=== PATIENT | male | born 1975 | race Caucasian/White ===

== ENCOUNTER 2023-09-07 17:30 | Inpatient (IN) | payer OTHER ==
[2023-09-07] MEDS ORDERED: ASPIRIN 81 MG PO STA (17:50)
[2023-09-07] MEDS ORDERED: NITROGLYCERIN OINT 1 INCH/GM PACKET TOPICAL STA (17:50)
--- NOTE | 2023-09-07 18:09 | ED ---
General Adult HPI - General Chief complaint: Shortness of Breath Stated complaint: low oxygen Time Seen by Provider: 09/07/23 17:37 Source: EMS, RN notes reviewed, old records reviewed Mode of arrival: EMS - History of Present Illness Initial comments: This is a 48-year-old male patient admits that he is a frequent crack cocaine user but he also used heroin today patient went to [facility] and he complained about being short of breath and they noticed his pulse ox was in the 80s so they decided to send him in. Patient states he smokes quite heavily and his common was smoke a minute soon as I can get him. Patient denies chest pain or palpitations. Patient denies bowel pain patient denies nausea vomiting diarrhea. Patient denies lightheadedness or dizziness. Patient states he's been coughing quite a bit lately - Related Data Home Medications Medication Instructions Recorded Confirmed Albuterol Inhaler [Ventolin Hfa 1 - 2 puff INHALATION RT-Q6H PRN 09/07/23 09/07/23 Inhaler] Buprenorphine/Naloxone 8Mg/2Mg 1 film SL BID 09/07/23 09/07/23 [Suboxone 8-2Mg Film] Mirtazapine 7.5 mg PO HS 09/07/23 09/07/23 hydrOXYzine pamoate 50 mg PO Q6H PRN 09/07/23 09/07/23 Allergies Allergy/AdvReac Type Severity Reaction Status Date / Time No Known Allergies Allergy Verified 09/07/23 18:58 Review of Systems ROS Statement: Those systems with pertinent positive or pertinent negative responses have been documented in the HPI. ROS Other: All systems not noted in ROS Statement are negative. Past Medical History Additional Past Surgical History / Comment(s): meniscous repair surgery Smoking Status: Current every day smoker Past Alcohol Use History: Rare Past Drug Use History: Cocaine, Heroin, Opiates General Exam - General Exam Comments Initial Comments: GENERAL: Patient is well-developed and well-nourished. Patient is nontoxic and well- hydrated and is in mild distress. Pulse ox was 86% on room air, ENT: Neck is soft and supple. No significant lymphadenopathy is noted. Oropharynx is clear. Moist mucous membranes. Neck has full range of motion without eliciting any pain. EYES: The sclera were anicteric and conjunctiva were pink and moist. Extraocular movements were intact and pupils were equal round and reactive to light. Eyelids were unremarkable. PULMONARY: Unlabored respirations. Good breath sounds bilaterally. No audible rales rhonchi or wheezing was noted. CARDIOVASCULAR: There is a regular rate and rhythm without any murmurs gallops or rubs. ABDOMEN: Soft and nontender with normal bowel sounds. SKIN: Skin is clear with no lesions or rashes and otherwise unremarkable. NEUROLOGIC: Patient is alert and oriented x3. Cranial nerves II through XII are grossly intact. Motor and sensory are also intact. Normal speech, volume and content. Symmetrical smile. MUSCULOSKELETAL: Normal extremities with adequate strength and full range of motion. LYMPHATICS: No significant lymphadenopathy is noted PSYCHIATRIC: Normal psychiatric evaluation. Course Vital Signs 09/07/23 09/07/23 09/07/23 17:41 17:47 19:15 Temperature 99.3 F Pulse Rate 83 79 Respiratory 20 20 Rate Blood Pressure 110/58 104/63 O2 Sat by Pulse 88 L 95 97 Oximetry 09/07/23 19:48 Temperature Pulse Rate Respiratory 20 Rate Blood Pressure O2 Sat by Pulse Oximetry Medical Decision Making - Medical Decision Making EKG is interpreted by myself. EKG shows sinus rhythm at 72 bpm ID interval 246 QRS is under QT intervals 382 QTC is 407. EKG shows no ST segment elevation or depression Was pt. sent in by a medical professional or institution ([facility], [facility]IER, urgent care, hospital, or residential...) When possible be specific @ -[facility] patient to the emergency department Did you speak to anyone other than the patient for history (EMS, parent, family, police, friend...)? What history was obtained from this source @ -No Did you review nursing and triage notes (agree or disagree)? Why? @ -I reviewed and agree with nursing and triage notes Were old charts reviewed (outside hosp., previous admission, EMS record, old EKG, old radiological studies, urgent care reports/EKG's, residential records)? Report findings @ -No old charts were reviewed Differential Diagnosis (chest pain, altered mental status, abdominal pain women, abdominal pain men, vaginal bleeding, weakness, fever, dyspnea, syncope, headache, dizziness, GI bleed, back pain, seizure, CVA, palpatations, mental health, musculoskeletal)? @ -Differential Dyspnea: Coronary syndrome, arrhythmia, tamponade, asthma, COPD, pulmonary embolism, pneumonia, pneumothorax, pulmonary effusion, anaphylaxis, diabetic ketoacidosis, flailed chest, pulmonary contusion, diaphragmatic rupture, anemia, neuromuscular, this is not meant to be an all-inclusive list. Differential Chest Pain: Stable Angina, Unstable Angina, STEMI, NSTEMI Aortic Dissection, Pneumothorax, Musculoskeletal, Esophageal Spasm GERD, Cholecystitis, Pancreatitis, Zoster, this is not meant to be an all-inclusive list. EKG interpreted by me (3pts min.). @ -As above X-rays interpreted by me (1pt min.). @ -Shows bilateral infiltrates CT interpreted by me (1pt min.). @ -None done U/S interpreted by me (1pt. min.). @ -None done What testing was considered but not performed or refused? (CT, X-rays, U/S, la bs)? Why? @ -None What meds were considered but not given or refused? Why? @ -None Did you discuss the management of the patient with other professionals (professionals i.e. , PA, CHECK OUT CASHIER, lab, RT, psych nurse, professor of social work, principal developer, teacher, tax revenue officer, spring encaser)? Give summary @ -I spoke with the [facility] hospitalist and they agreed to admit the patient admitted the patient wrote admitting orders Was smoking cessation discussed for >3mins.? @ -No Was critical care preformed (if so, how long)? @ -No Were there social determinants of health that impacted care today? How? (Homelessness, low income, unemployed, alcoholism, drug addiction, transportation, low edu. Level, literacy, decrease access to med. care, intermediate, rehab)? @ -No Was there de-escalation of care discussed even if they declined (Discuss DNR or withdrawal of care, Hospice)? DNR status @ -No What co-morbidities impacted this encounter? (DM, HTN, Smoking, COPD, CAD, Cancer, CVA, ARF, Chemo, Hep., AIDS, mental health diagnosis, sleep apnea, morbid obesity)? @ -None Was patient admitted / discharged? Hospital course, mention meds given and route, prescriptions, significant lab abnormalities, going to OR and other pertinent info. @ -The patient on antibiotics for the pneumonia. [facility] the patient wrote admitting orders Undiagnosed new problem with uncertain prognosis? @ -No Drug Therapy requiring intensive monitoring for toxicity (Heparin, Nitro, Ins ulin, Cardizem)? @ -No Were any procedures done? @ -No Diagnosis/symptom? @ -Pneumonia Acute, or Chronic, or Acute on Chronic? @ -Acute Uncomplicated (without systemic symptoms) or Complicated (systemic symptoms)? @ -Complicated Side effects of treatment? @ -No Exacerbation, Progression, or Severe Exacerbation? @ -No Poses a threat to life or bodily function? How? (Chest pain, [place], [place], pneumonia, PE, COPD, DKA, ARF, appy, cholecystitis, CVA, Diverticulitis, Homicidal, Suicidal, threat to staff... and all critical care pts) @ -Yes This can lead to sepsis and end organ dysfunction Diagnosis/symptom? @ -Chest pain Acute, or Chronic, or Acute on Chronic? @ -Acute Uncomplicated (without systemic symptoms) or Complicated (systemic symptoms)? @ -Complicated Side effects of treatment? @ -none Exacerbation, Progression, or Severe Exacerbation] @ -no Poses a threat to life or bodily function? @ -no - Lab Data Result diagrams: 09/07/23 19:16 09/07/23 19:16 Lab Results 09/07/23 09/07/23 09/07/23 Range/Units 19:16 19:16 19:16 WBC 14.6 H (3.8-10.6) k/uL RBC 4.18 L (4.30-5.90) m/uL Hgb 12.5 L (13.0-17.5) gm/dL Hct 36.7 L (39.0-53.0) % MCV 87.8 (80.0-100.0) fL MCH 30.0 (25.0-35.0) pg MCHC 34.1 (31.0-37.0) g/dL RDW 13.2 (11.5-15.5) % Plt Count 302 (150-450) k/uL MPV 7.1 Neutrophils % 77 % Lymphocytes % 16 % Monocytes % 5 % Eosinophils % 2 % Basophils % 0 % Neutrophils # 11.2 H (1.3-7.7) k/uL Lymphocytes # 2.3 (1.0-4.8) k/uL Monocytes # 0.7 (0-1.0) k/uL Eosinophils # 0.2 (0-0.7) k/uL Basophils # 0.1 (0-0.2) k/uL PT 10.9 (10.0-12.5) sec INR 1.0 (<1.2) APTT 25.3 (22.0-30.0) sec D-Dimer 0.57 (<0.60) mg/L FEU Sodium 137 (137-145) mmol/L Potassium 3.8 (3.5-5.1) mmol/L Chloride 102 (98-107) mmol/L Carbon Dioxide 26 (22-30) mmol/L Anion Gap 9 mmol/L BUN 18 (9-20) mg/dL Creatinine 0.72 (0.66-1.25) mg/dL Est GFR (CKD-EPI)AfAm >90 (>60 ml/min/1.73 sqM) Est GFR (CKD-EPI)NonAf >90 (>60 ml/min/1.73 sqM) Glucose 110 H (74-99) mg/dL Calcium 9.1 (8.4-10.2) mg/dL Magnesium 1.9 (1.6-2.3) mg/dL Total Bilirubin 0.9 (0.2-1.3) mg/dL AST 43 (17-59) U/L ALT 20 (4-49) U/L Alkaline Phosphatase 121 (38-126) U/L Troponin I (0.000-0.034) ng/mL NT-Pro-B Natriuret Pep 1540 pg/mL Total Protein 6.8 (6.3-8.2) g/dL Albumin 3.8 (3.5-5.0) g/dL 09/07/23 Range/Units 19:16 WBC (3.8-10.6) k/uL RBC (4.30-5.90) m/uL Hgb (13.0-17.5) gm/dL Hct (39.0-53.0) % MCV (80.0-100.0) fL MCH (25.0-35.0) pg MCHC (31.0-37.0) g/dL RDW (11.5-15.5) % Plt Count (150-450) k/uL MPV Neutrophils % % Lymphocytes % % Monocytes % % Eosinophils % % Basophils % % Neutrophils # (1.3-7.7) k/uL Lymphocytes # (1.0-4.8) k/uL Monocytes # (0-1.0) k/uL Eosinophils # (0-0.7) k/uL Basophils # (0-0.2) k/uL PT (10.0-12.5) sec INR (<1.2) APTT (22.0-30.0) sec D-Dimer (<0.60) mg/L FEU Sodium (137-145) mmol/L Potassium (3.5-5.1) mmol/L Chloride (98-107) mmol/L Carbon Dioxide (22-30) mmol/L Anion Gap mmol/L BUN (9-20) mg/dL Creatinine (0.66-1.25) mg/dL Est GFR (CKD-EPI)AfAm (>60 ml/min/1.73 sqM) Est GFR (CKD-EPI)NonAf (>60 ml/min/1.73 sqM) Glucose (74-99) mg/dL Calcium (8.4-10.2) mg/dL Magnesium (1.6-2.3) mg/dL Total Bilirubin (0.2-1.3) mg/dL AST (17-59) U/L ALT (4-49) U/L Alkaline Phosphatase (38-126) U/L Troponin I 0.014 (0.000-0.034) ng/mL NT-Pro-B Natriuret Pep pg/mL Total Protein (6.3-8.2) g/dL Albumin (3.5-5.0) g/dL Disposition Clinical Impression: Pneumonia, Chest pain Disposition: ADMITTED IP TO THIS HOSP Referrals: None,Stated [Primary Care Provider] - 1-2 days Time of Disposition: 20:40
--- NOTE | 2023-09-07 18:32 | XR ---
EXAMINATION TYPE: XR chest 2V DATE OF EXAM: 09/07/2023 COMPARISON: None INDICATION: Chest pain TECHNIQUE: Frontal and lateral views of the chest are obtained. FINDINGS: The heart size is normal. The pulmonary vasculature is prominent. There are patchy infiltrates bilaterally. Consider atypical pneumonia within the differential. Follow -up is recommended.. IMPRESSION: 1. Patchy nonspecific infiltrates. Consider atypical pneumonia. Follow-up is recommended.
[2023-09-07] MEDS ORDERED: LORazepam 2 MG/ML INJ IV STA (19:08)
[2023-09-07 19:23] LABS: Basophils # (A) 0.1 k/uL (0-0.2); Basophils % (A) 0 %; Eosinophils # (A) 0.2 k/uL (0-0.7); Eosinophils % (A) 2 %; HCT 36.7 % (39.0-53.0); HGB 12.5 gm/dL (13.0-17.5); Lymphocytes # (A) 2.3 k/uL (1.0-4.8); Lymphocytes % (A) 16 %; MCHC 34.1 g/dL (31.0-37.0); MCV 87.8 fL (80.0-100.0); Mean Platelet Volume 7.1; Monocytes # (A) 0.7 k/uL (0-1.0); Monocytes % (A) 5 %; Neutrophils # (A) 11.2 k/uL (1.3-7.7); Neutrophils % (A) 77 %; Platelet Count 302 k/uL (150-450); RBC 4.18 m/uL (4.30-5.90); RDW 13.2 % (11.5-15.5); WBC 14.6 k/uL (3.8-10.6)
[2023-09-07] MEDS ORDERED: cefTRIAXone IN SWFI 1,000 MG/10 ML SYRINGE IVP STA (19:29)
[2023-09-07 19:45] LABS: Partial Thromboplastin Time 25.3 sec (22.0-30.0); Prothrombin Time 10.9 sec (10.0-12.5)
[2023-09-07 19:59] LABS: ALT 20 U/L (4-49); AST 43 U/L (17-59); African American GFR (CKD) >90 (>60 ml/min/1.73 sqM); Albumin 3.8 g/dL (3.5-5.0); Alkaline Phosphatase 121 U/L (38-126); Anion Gap 9 mmol/L; Blood Urea Nitrogen 18 mg/dL (9-20); Calcium 9.1 mg/dL (8.4-10.2); Carbon Dioxide 26 mmol/L (22-30); Chloride 102 mmol/L (98-107); Glucose 110 mg/dL (74-99); Magnesium 1.9 mg/dL (1.6-2.3); Non-African American GFR(CKD) >90 (>60 ml/min/1.73 sqM); Potassium 3.8 mmol/L (3.5-5.1); Sodium 137 mmol/L (137-145); Total Bilirubin 0.9 mg/dL (0.2-1.3); Total Protein 6.8 g/dL (6.3-8.2)
[2023-09-07 20:08] LABS: NT-Pro-B-Type Natriuretic Pept 1540 pg/mL
[2023-09-07] MEDS ORDERED: AZITHROMYCIN 500 MG in SODIUM CHLORIDE 0.9% 250 ML IVPB STA (20:41)
[2023-09-07] MEDS ORDERED: PNEUMONIA PROTOCOL UTILIZED 1 EACH MISC PO PRN (20:41)
--- NOTE | 2023-09-08 07:37 | XR ---
EXAMINATION TYPE: XR chest 2V DATE OF EXAM: 09/08/2023 COMPARISON: 09/07/2023 HISTORY: Pneumonia TECHNIQUE: Frontal and lateral views of the chest are obtained. FINDINGS: Patchy airspace infiltrates persist throughout both lung anderson essentially unchanged from prior stud y compatible with pneumonia. Continued follow-up is advised No evidence for pneumothorax. No pleural effusion. The cardiac silhouette size is within normal limits. The osseous structures are grossly intact. IMPRESSION: 1. Patchy airspace infiltrates persist throughout both lung anderson essentially unchanged from prior study compatible with pneumonia. Continued follow-up is advised
[2023-09-08] MEDS: ASPIRIN 81 MG PO SCH (09:31)
--- NOTE | 2023-09-08 10:11 | P.CRDCN ---
History of Present Illness Consult date: 09/08/23 Consult reason: chest pain History of present illness: History of present illness: This is a 48-year-old male with no previous cardiac history. he has a past medical history of tobacco use and dependence, history of crack cocaine, heroin and opiate use.patient is currently at [facility] and developed shortness of breath and pulse ox dropped into the 80s and patient was brought in for further evaluation. He states that he saw his primary care physician about 2 weeks ago and was given and Z-Cole at that time but his dog got hold of it so we didn't end up taking it. He has had ongoing cough and fever as well as he's noted that his pulse ox was low in the doctor's office as well as blood pressure. Once he arrived at [facility] they found his pulse ox and blood pressure were low and sent him here for evaluation. He states he has not had any cardiac workup in the past does not follow-up with a teacher counselor. He state s that he had a stroke about 2 years ago that affected weakness in his left hand. Patient did not seek any treatment and no residuals at this time. He is a smoker one pack per day. He denies any alcohol use. He does use inhaled crack cocaine and recently heroin. He denies having any chest pain when he uses illicit drugs. EKG sinus rhythm, incomplete right bundle branch block Chest x-ray:#1 patchy nonspecific infiltrates consider typical pneumonia. #2 patchy airspace infiltrates persist throughout both lung anderson unchanged. WBC 14.6, hemoglobin 12.5, platelet count 302. INR 1. D-dimer 0.57. Electrolytes and renal function normal. Lactic acid 1.2. Troponin negative 2. ProBNP 1540. Liver function tests are normal. Influenza A, influenza B B, RSV, Covid 19 oh to detect. Home cardiac medications:none Review Of Systems: At the time of my exam: CONSTITUTIONAL: + fever or chills. CARDIOVASCULAR: Denies chest pain, Denies shortness of breath, no orthopnea, PND or palpitations. RESPIRATORY: + cough. GASTROINTESTINAL: Denies abdominal pain, diarrhea, constipation, nausea or v omiting. MUSCULOSKELETAL: Denies myalgias. NEUROLOGIC: Denies numbness, tingling or weakness. ENDOCRINE: Denies fatigue, weight change, polydipsia or polyurina. GENITOURINARY: Denies burning, hematuria or urgency with micturation. HEMATOLOGIC: Denies history of anemia or bleeding. Physical examination: Gen: This is a 48-year-old male resting in a chair and appears to be in no acute distress. VS: reviewed HEENT: Head is atraumatic, normocephalic. Pupils equal, round. Sclerae is anicteric. Patient is edentulous. NECK: Supple. No JVD. LUNGS: Clear to auscultation. No wheezes or rhonchi. No intercostal retractions. HEART: Regular rate and rhythm. No murmur. ABDOMEN: Soft No tenderness. EXTREMITIES: No pedal edema. No calf tenderness. NEUROLOGICAL: Patient is awake, alert and oriented x3. Assessment: pneumonia chest pain atypical, acute coronary syndrome ruled out history of tobacco use and dependence History of crack cocaine, heroin and opiate use History of CVA 2 years ago-reported by patient Smoking cessation Plan: Add aspirin 81 mg daily and atorvastatin 20 mg daily Obtain 2-D echocardiogram and Doppler study to assess cardiac structure and function Further recommendations to follow based upon clinical course Thank you kindly for this consultation. Nurse practitioner note has been reviewed, I agree with documented findings and plan of care. Patient was seen and examined. Past Medical History Additional Past Surgical History / Comment(s): meniscous repair surgery Smoking Status: Current every day smoker Past Alcohol Use History: Rare Past Drug Use History: Cocaine, Heroin, Opiates Medications and Allergies Home Medications Medication Instructions Recorded Confirmed Type Albuterol Inhaler [Ventolin Hfa 1 - 2 puff INHALATION RT-Q6H PRN 09/07/23 09/07/23 History Inhaler] Buprenorphine/Naloxone 8Mg/2Mg 1 film SL BID 09/07/23 09/07/23 History [Suboxone 8-2Mg Film] Mirtazapine 7.5 mg PO HS 09/07/23 09/07/23 History hydrOXYzine pamoate 50 mg PO Q6H PRN 09/07/23 09/07/23 History Allergies Allergy/AdvReac Type Severity Reaction Status Date / Time No Known Allergies Allergy Verified 09/07/23 18:58 Physical Exam Vitals: Vital Signs Temp Pulse Resp BP Pulse Ox 09/08/23 06:00 61 18 93/55 98 09/08/23 04:00 61 18 119/62 98 09/08/23 03:00 60 18 98/64 98 09/08/23 01:00 60 18 95/60 98 09/08/23 00:00 59 L 18 105/69 98 09/07/23 21:40 69 14 110/71 98 09/07/23 19:48 20 09/07/23 19:15 79 20 104/63 97 09/07/23 17:47 95 09/07/23 17:41 99.3 F 83 20 110/58 88 L Intake and Output 09/07/23 09/08/23 09/08/23 22:59 06:59 14:59 Other: Weight 88.904 kg Results 09/07/23 19:16 09/07/23 19:16 Cardiac Enzymes 09/07/23 09/07/23 09/07/23 Range/Units 19:16 19:16 22:03 AST 43 (17-59) U/L Troponin I 0.014 <0.012 (0.000-0.034) ng/mL Coagulation 09/07/23 Range/Units 19:16 PT 10.9 (10.0-12.5) sec APTT 25.3 (22.0-30.0) sec CBC 09/07/23 Range/Units 19:16 WBC 14.6 H (3.8-10.6) k/uL RBC 4.18 L (4.30-5.90) m/uL Hgb 12.5 L (13.0-17.5) gm/dL Hct 36.7 L (39.0-53.0) % Plt Count 302 (150-450) k/uL Comprehensive Metabolic Panel 09/07/23 Range/Units 19:16 Sodium 137 (137-145) mmol/L Potassium 3.8 (3.5-5.1) mmol/L Chloride 102 (98-107) mmol/L Carbon Dioxide 26 (22-30) mmol/L BUN 18 (9-20) mg/dL Creatinine 0.72 (0.66-1.25) mg/dL Glucose 110 H (74-99) mg/dL Calcium 9.1 (8.4-10.2) mg/dL AST 43 (17-59) U/L ALT 20 (4-49) U/L Alkaline Phosphatase 121 (38-126) U/L Total Protein 6.8 (6.3-8.2) g/dL Albumin 3.8 (3.5-5.0) g/dL Current Medications Generic Name Dose Route Start Last Admin Trade Name Freq PRN Reason Stop Dose Admin Azithromycin 500 mg 09/08/23 21:00 Azithromycin 500 Mg Tab PO 09/09/23 21:01 HS [facility] Protocol Ceftriaxone Sodium 2 gm/ 50 mls @ 100 mls/hr 09/08/23 09:00 Sodium Chloride IVPB 09/11/23 09:29 Q24HR [facility] Protocol Miscellaneous Information 1 each 09/07/23 20:41 Pneumonia Protocol Utilized 1 Each Misc PO ONCE PRN Per Protocol Intake and Output 09/07/23 09/08/23 09/08/23 22:59 06:59 14:59 Other: Weight 88.904 kg 09/07/23 19:16 09/07/23 19:16
--- NOTE | 2023-09-08 11:43 | CA ---
Transthoracic Echo Report Name: Anthony Lr Age: 48 Gender: M : 1975 Exam Date: 09/08/2023 08:38 Exam Location: [place] [facility] Ht (in): 72 Wt (lb): 196 Ordering Physician: Davina Espinoza Attending/Referring Phys: [id number], Olga Firm Administrator Lisa Wilcox, JAYDE Procedure CPT: Indications: LVF Cardiac Hx: Technical Quality: Good Contrast 1: Total Dose (mL): Contrast 2: Total Dose (mL): MEASUREMENTS (Male / Female) Normal Values 2D ECHO LV Diastolic Diameter PLAX 4.6 cm 4.2 - 5.9 / 3.9 - 5.3 cm LV Systolic Diameter PLAX 3.3 cm IVS Diastolic Thickness 0.9 cm 0.6 - 1.0 / 0.6 - 0.9 cm LVPW Diastolic Thickness 0.9 cm 0.6 - 1.0 / 0.6 - 0.9 cm LV Relative Wall Thickness 0.4 RV Internal Dim ED PLAX 3.5 cm LA Systolic Diameter LX 3.5 cm 3.0 - 4.0 / 2.7 - 3.8 cm LV Diastolic Volume MOD BP 86.5 cm??? 67 - 155 / 56 - 104 cm??? LV Systolic Volume MOD BP 38.4 cm??? 22 - 58 / 19 - 49 cm??? LV Ejection Fraction MOD BP 55.7 % >= 55 % LV Cardiac Index MOD BP 1532.6 cm???/min???m??? LV Diastolic Volume MOD 4C 104.9 cm??? LV Systolic Volume MOD 4C 43.9 cm??? LV Ejection Fraction MOD 4C 58.1 % LV Cardiac Index MOD 4C 1938.8 cm???/min???m??? LV Diastolic Length 4C 7.4 cm LV Systolic Length 4C 6.2 cm LV Diastolic Volume MOD 2C 70.4 cm??? LV Systolic Volume MOD 2C 32.9 cm??? LV Ejection Fraction MOD 2C 53.2 % LV Cardiac Index MOD 2C 1191.8 cm???/min???m??? LV Diastolic Length 2C 7.0 cm LV Systolic Length 2C 5.9 cm LA Volume 52.9 cm??? 18 - 58 / 22 - 52 cm??? LA Volume Index 24.7 cm???/m??? 16 - 28 cm???/m??? M-MODE Aortic Root Diameter MM 3.0 cm MV E Point Septal Separation 0.7 cm AV Cusp Separation MM 2.2 cm DOPPLER AV Peak Velocity 186.3 cm/s AV Peak Gradient 13.9 mmHg MV Area PHT 3.4 cm??? Mitral E Point Velocity 111.8 cm/s Mitral A Point Velocity 67.4 cm/s Mitral E to A Ratio 1.7 MV Deceleration Time 222.2 ms MV E' Velocity 9.8 cm/s Mitral E to MV E' Ratio 11.4 TR Peak Velocity 294.7 cm/s TR Peak Gradient 34.7 mmHg Right Ventricular Systolic Press 39.7 mmHg FINDINGS Left Ventricle Left ventricular ejection fraction is estimated at 55-60 %. Left ventricular cavity size normal. Left ventricular wall thickness normal. No obvious regional wall motion abnormalities. Right Ventricle Mild right ventricular dilatation. Mild pulmonary hypertension. Right ventricular systolic pressure estimated at 40 mm hg. Right Atrium Normal right atrial size. Left Atrium Normal left atrial size. Mitral Valve Structurally normal mitral valve. No mitral stenosis, regurgitation or prolapse. Aortic Valve Trileaflet aortic valve. No aortic valve stenosis or regurgitation. Tricuspid Valve Structurally normal tricuspid valve. Mild tricuspid regurgitation. Pulmonic Valve Structurally normal pulmonic valve. No pulmonic regurgitation. Pericardium No pericardial effusion. Aorta Normal size aortic root and proximal ascending aorta. CONCLUSIONS Left ventricular ejection fraction is estimated at 55-60 %. No obvious regional wall motion abnormalities. Right ventricular systolic pressure estimated at 40 mm hg. No significant valvular dysfunction Previewed by: Dr Jerson Burden (Electronically Signed) Final Date: 08 September 2023 11:43
[2023-09-08] MEDS ORDERED: hydrOXYzine pamoate 25 MG CAP PO PRN (13:41)
[2023-09-08] MEDS ORDERED: KETOROLAC 15 MG/ML 1 ML VIAL IVP PRN (13:59)
--- NOTE | 2023-09-08 14:04 | P.HPIM ---
History of Present Illness 48-year-old male with history of crack: Use heroine use were is at [place] was sent in here because of shortness of breath with pulse ox topically case and cough. Patient was using Z-Cole which did not help his symptoms. Patient is found to have bilateral infiltrate consistent with atypical pneumonia or bilateral lower pneumonia and subsequently admitted with the Rocephin and azithromycin patient was also company of chest pain pleuritic in nature. Behind the shoulder blades. D-dimer is negative. Patient is still lethargic. Patient does have leukocytosis, no fever Urine Legionella antigen is pending influenza, RSV, COVID-19 are negative patient had an echocardiogram preoperatively evaluated the patient because of chest pain and normal ejection fraction the patient has not cardiac chest pain. REVIEW OF SYSTEMS: CONSTITUTIONAL: No fever, no malaise, no fatigue. HEENT: No recent visual problems or hearing problems. Denied any sore throat. CARDIOVASCULAR: No chest pain, orthopnea, PND, no palpitations, no syncope. PULMONARY: No shortness of breath, no cough, no hemoptysis. GASTROINTESTINAL: No diarrhea, no nausea, no vomiting, no abdominal pain. NEUROLOGICAL: No headaches, no weakness, no numbness. HEMATOLOGICAL: Denies any bleeding or petechiae. GENITOURINARY: Denies any burning micturition, frequency, or urgency. MUSCULOSKELETAL/RHEUMATOLOGICAL: Denies any joint pain, swelling, or any muscle pain. ENDOCRINE: Denies any polyuria or polydipsia. The rest of the 14-point review of systems is negative. PHYSICAL EXAMINATION: GENERAL: The patient is alert and oriented x3, not in any acute distress. Well developed, well nourished. HEENT: Pupils are round and equally reacting to light. EOMI. No scleral icterus. No conjunctival pallor. Normocephalic, atraumatic. No pharyngeal erythema. No thyromegaly. CARDIOVASCULAR: S1 and S2 present. No murmurs, rubs, or gallops. PULMONARY: Chest is clear to auscultation, no wheezing or crackles. ABDOMEN: Soft, nontender, nondistended, normoactive bowel sounds. No palpable organomegaly. MUSCULOSKELETAL: No joint swelling or deformity. EXTREMITIES: No cyanosis, clubbing, or pedal edema. NEUROLOGICAL: Gross neurological examination did not reveal any focal deficits. SKIN: No rashes. Assessment and plan -Hypoxia: Secondary to pneumonia bilateral atypical pneumonia is a consideration continue with Rocephin and azithromycin progastrin will be ordered -Chest pain pleuritic secondary to pneumonia noncardiac chest pain echocardiac exam within normal limits -Seizure disorder -Drug abuse with the above-mentioned drugs: Patient is on Suboxone which will be continued -Depression next and-continued nicotine use: Counseling was provided nicotine patch will be ordered DVT prophylaxis: Lovenox Past Medical History Past Medical History: Hypertension, Seizure Disorder History of Any Multi-Drug Resistant Organisms: None Reported Additional Past Surgical History / Comment(s): meniscous repair surgery Past Anesthesia/Blood Transfusion Reactions: No Reported Reaction Smoking Status: Current every day smoker Past Alcohol Use History: Rare Past Drug Use History: Cocaine, Heroin, Opiates Medications and Allergies Home Medications Medication Instructions Recorded Confirmed Type Albuterol Inhaler [Ventolin Hfa 1 - 2 puff INHALATION RT-Q6H PRN 09/07/23 09/07/23 History Inhaler] Buprenorphine/Naloxone 8Mg/2Mg 1 film SL BID 09/07/23 09/07/23 History [Suboxone 8-2Mg Film] Mirtazapine 7.5 mg PO HS 09/07/23 09/07/23 History hydrOXYzine pamoate 50 mg PO Q6H PRN 09/07/23 09/07/23 History Allergies Allergy/AdvReac Type Severity Reaction Status Date / Time No Known Allergies Allergy Verified 09/07/23 18:58 Physical Exam Vitals: Vital Signs Temp Pulse Pulse Resp BP BP Pulse Ox 09/08/23 13:52 97.8 F 50 L 16 116/67 97 09/08/23 07:00 98.0 F 65 16 97/54 95 09/08/23 06:00 61 18 93/55 98 09/08/23 04:00 61 18 119/62 98 09/08/23 03:00 60 18 98/64 98 09/08/23 01:00 60 18 95/60 98 09/08/23 00:00 59 L 18 105/69 98 09/07/23 21:40 69 14 110/71 98 09/07/23 19:48 20 09/07/23 19:15 79 20 104/63 97 09/07/23 17:47 95 09/07/23 17:41 99.3 F 83 20 110/58 88 L Intake and Output 09/07/23 09/08/23 09/08/23 22:59 06:59 14:59 Other: # Bowel Movements 1 Weight 88.904 kg 88.904 kg Results CBC & Chem 7: 09/07/23 19:16 09/07/23 19:16 Labs: Abnormal Lab Results - Last 24 Hours (Table) 09/07/23 09/07/23 Range/Units 19:16 19:16 WBC 14.6 H (3.8-10.6) k/uL RBC 4.18 L (4.30-5.90) m/uL Hgb 12.5 L (13.0-17.5) gm/dL Hct 36.7 L (39.0-53.0) % Neutrophils # 11.2 H (1.3-7.7) k/uL Glucose 110 H (74-99) mg/dL
[2023-09-08] MEDS: FAMOTIDINE 20 MG TAB PO SCH ×2 (14:17→20:43)
[2023-09-08] MEDS: NICOTINE 21MG/24HR PATCH TRANSDERM SCH (14:17)
[2023-09-08] MEDS: NON FORMULARY DRUG (Buprenorphine/Naloxone 8mg/2mg 1 EACH Film) SUBLINGUAL SCH ×2 (14:25→23:05)
[2023-09-08 15:17] LABS: Amphetamine Screen,Urine Not Detected (NotDetected); Barbiturate Screen,Urine Not Detected (NotDetected); Benzodiazepines Screen,Urine Detected (NotDetected); Cocaine Screen,Urine Detected (NotDetected); Methadone Screen, Urine Not Detected (NotDetected); Opiate Screen,Urine Detected (NotDetected); Oxycodone Screen, Urine Not Detected (NotDetected); Phencyclidine Screen,Urine Not Detected (NotDetected); Tricyclic Antidepressant,Urine Not Detected (NotDetected); Urn Cannabinoid Scrn Not Detected (NotDetected)
[2023-09-08] MEDS: ALBUTEROL NEBULIZED 2.5 MG/3 ML INHALATION PRN (19:50)
[2023-09-08] MEDS: ATORVASTATIN 20 MG TAB PO SCH (20:42)
[2023-09-08] MEDS: AZITHROMYCIN 500 MG TAB PO SCH (20:42)
[2023-09-08] MEDS: MIRTAZAPINE 15 MG TAB PO SCH (20:43)
[2023-09-08] MEDS ORDERED: BUPRENORPHINE-NALOX 8-2 MG TAB 1 EACH TAB.SUBL SL SCH (21:00)
[2023-09-08] MEDS ORDERED: LORazepam 1 MG TAB PO STA (22:03)
--- NOTE | 2023-09-09 09:37 | P.PN ---
Subjective Progress Note Date: 09/09/23 Consult reason: chest pain History of present illness: History of present illness: This is a 48-year-old male with no previous cardiac history. he has a past medical history of tobacco use and dependence, history of crack cocaine, heroin and opiate use.patient is currently at [facility] and developed shortness of breath and pulse ox dropped into the 80s and patient was brought in for further evaluation. He states that he saw his primary care physician about 2 weeks ago and was given and Z-Cole at that time but his dog got hold of it so we didn't end up taking it. He has had ongoing cough and fever as well as he's noted that his pulse ox was low in the doctor's office as well as blood pressure. Once he arrived at [facility] they found his pulse ox and blood pressure were low and sent him here for evaluation. 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 He states that he had a stroke about 2 years ago that affected weakness in his left hand. Patient did not seek any treatment and no residuals at this time. He is a smoker one pack per day. He denies any alcohol use. He does use inhaled crack cocaine and recently heroin. He denies having any chest pain when he uses illicit drugs. EKG sinus rhythm, incomplete right bundle branch block Chest x-ray:#1 patchy nonspecific infiltrates consider typical pneumonia. #2 patchy airspace infiltrates persist throughout both lung anderson unchanged. WBC 14.6, hemoglobin 12.5, platelet count 302. INR 1. D-dimer 0.57. E lectrolytes and renal function normal. Lactic acid 1.2. Troponin negative 2. ProBNP 1540. Liver function tests are normal. Influenza A, influenza B B, RSV, Covid 19 oh to detect. Home cardiac medications:none 09/09 Patient is seen today in follow-up. Echocardiogram reveals EF of 55-60%, RVSP 40 mmHg. No significant valvular dysfunction. Echocardiogram results reviewed with the patient. No complaints of chest pain today. Patient continues to have some cough. He has been afebrile, heart rate in the 50s, blood pressure 111/72, pulse ox 100% on 2 L nasal cannula. Physical examination: Gen: This is a 48-year-old male resting in a chair and appears to be in no acute distress. VS: reviewed HEENT: Head is atraumatic, normocephalic. Pupils equal, round. Sclerae is anicteric. Patient is edentulous. NECK: Supple. No JVD. LUNGS: Clear to auscultation. No wheezes or rhonchi. No intercostal retractions. HEART: Regular rate and rhythm. No murmur. ABDOMEN: Soft No tenderness. EXTREMITIES: No pedal edema. No calf tenderness. NEUROLOGICAL: Patient is awake, alert and oriented x3. Assessment: pneumonia chest pain atypical, acute coronary syndrome ruled out history of tobacco use and dependence History of crack cocaine, heroin and opiate use History of CVA 2 years ago-reported by patient Smoking cessation Plan: Continue aspirin 81 mg daily and atorvastatin 20 mg daily Cardiology will sign off this case and follow on an as-needed basis. Please reconsult for any new concerns. Nurse practitioner note has been reviewed, I agree with documented findings and plan of care. Patient was seen and examined. Objective - Vital Signs Vital signs: Vital Signs Temp 98.2 F 09/09/23 01:17 Pulse 50 L 09/09/23 02:03 Resp 16 09/09/23 02:03 BP 101/61 09/09/23 01:17 Pulse Ox 97 09/09/23 01:17 FiO2 Intake & Output 09/08/23 09/09/23 09/09/23 18:59 06:59 18:59 Intake Total 260 458 Balance 260 458 Weight 88.904 kg Intake: Oral 260 458 Other: Voiding Method Toilet # Voids 1 # Bowel Movements 1 - Labs CBC & Chem 7: 09/07/23 19:16 09/07/23 19:16 Labs: Abnormal Lab Results - Last 24 Hours (Table) 09/07/23 09/08/23 Range/Units 19:16 14:05 Procalcitonin 0.11 H (0.02-0.09) ng/mL Urine Opiates Screen Detected H (NotDetected) U Benzodiazepines Scrn Detected H (NotDetected) Urine Cocaine Screen Detected H (NotDetected) Microbiology - Last 24 Hours (Table) 09/07/23 20:15 Blood Culture - Preliminary Blood 09/07/23 20:00 Blood Culture - Preliminary Blood
[2023-09-09] MEDS: NICOTINE 21MG/24HR PATCH TRANSDERM SCH (11:20)
[2023-09-09] MEDS: ASPIRIN 81 MG PO SCH (11:21)
[2023-09-09] MEDS: FAMOTIDINE 20 MG TAB PO SCH ×2 (11:21→20:09)
[2023-09-09] MEDS: ENOXAPARIN 40 MG/0.4 ML SYRINGE SQ SCH (11:45)
[2023-09-09] MEDS: ALBUTEROL NEBULIZED 2.5 MG/3 ML INHALATION PRN (12:00)
--- NOTE | 2023-09-09 12:32 | CDI ---
Documentation Clarification Form Date: 09/09/2023 12:16:17 PM From: Olamide Brownlee RN CCDS Phone: [phone] Admit Date: 09/07/2023 08:42:00 PM Patient Name: Anthony Lr Visit Number: [id number] Discharge Date: ATTENTION: The Clinical Documentation Specialists (CDI) and [facility] Coding Staff appreciate your assistance in clarifying documentation. Please respond to the clarification below the line at the bottom and electronically sign. The CDI & [facility] Coding staff will review the response and follow-up if needed. Please note: Queries are made part of the Legal Health Record. If you have any questions, please contact the author of this message via ITS. Dr. Jean Whittaker Your patient has Hypoxemia documented in the H&P, 09/08. Based on this information and the findings below, is there an additional diagnosis that is clinically appropriate for this patient? History/Risk Factors: 48-year-old male presented with from [facility] for shortness of breath and pulse ox dropped into the 80s. Medial History: Crack cocaine, heroin and opiate use, HTN and depression. 09/08 H&P. Tobacco use: smoker one pack per day Clinical Indicators: Patient admitted for: Pneumonia and Chest pain. 09/07, ED note Vital signs: B/P 110/58; HR 83; Temp 99.3F oral; RR 20 SpO2 88% ra Lung/Breathing assessment, 09/07 H&P: Unlabored respirations. Good breath sounds bilaterally. CXR, 09/07: Patchy nonspecific infiltrates Treatment: Breathing tx: 09/08 Ventolin 2.5mg inhalation Q6H prn Oxygen: 09/07 17:47 - 09/08 07:00 3L nasal cannula Is there an additional diagnosis that is clinically appropriate for this patient? [ ] Acute Hypoxic Respiratory Failure (pO2 <60 mm Hg or SpO2 <91% on room air) [ x] Acute Respiratory Insufficiency [ ] Other Diagnosis, please specify [ ] Unable to determine (Template Last Revised: November 2020) MTDD
[2023-09-09] MEDS ORDERED: ALPRAZolam 0.25 MG TAB PO STA ×2 (14:36→15:56)
[2023-09-09] MEDS ORDERED: SODIUM CHLORIDE 0.9% 500 ML 500 ML IV ONE (15:00)
[2023-09-09] MEDS: SODIUM CHLORIDE 0.9% 1,000 ML IV SCH (15:01)
[2023-09-09] MEDS: methylPREDNISolone SOD SUCCI 40 MG/ML 1 ML VIAL IV SCH ×2 (16:02→20:09)
[2023-09-09] MEDS: ATORVASTATIN 20 MG TAB PO SCH (20:08)
[2023-09-09] MEDS: AZITHROMYCIN 500 MG TAB PO SCH (20:09)
[2023-09-09] MEDS: MIRTAZAPINE 15 MG TAB PO SCH (20:09)
[2023-09-10] MEDS: SODIUM CHLORIDE 0.9% 1,000 ML IV SCH (05:27)
--- NOTE | 2023-09-10 07:17 | P.PN ---
Subjective Progress Note Date: 09/09/23 48-year-old male with history of crack: Use heroine use were is at [place] was sent in here because of shortness of breath with pulse ox topically case and cough. Patient was using Z-Cole which did not help his symptoms. Patient is found to have bilateral infiltrate consistent with atypical pneumonia or bilateral lower pneumonia and subsequently admitted with the Rocephin and azithromycin patient was also company of chest pain pleuritic in nature. Behind the shoulder blades. D-dimer is negative. Patient is still lethargic. Patient does have leukocytosis, no fever Urine Legionella antigen is pending influenza, RSV, COVID-19 are negative patient had an echocardiogram preoperatively evaluate d the patient because of chest pain and normal ejection fraction the patient has not cardiac chest pain. 09/07/2023 Patient is evaluated today sitting up in bed. On room air. Continues to report shortness of breath and does have scattered wheezing. Troponin second level is negative. Echocardiogram showing EF 55-60% Review of Systems Constitutional: Denied any fatigue denied any fever. Cardio vascular: denied any chest pain, palpitations Gastrointestinal: denied any nausea, vomiting, diarrhea Pulmonary: Denied any shortness of breath cough Neurologic denied any new focal deficits All inpatient medications were reviewed and appropriate changes in these medications as dictated in the interval history and assessment and plan. PHYSICAL EXAMINATION: GENERAL: The patient is alert and oriented x3, not in any acute distress. Well developed, well nourished. HEENT: Pupils are round and equally reacting to light. EOMI. No scleral icterus. No conjunctival pallor. Normocephalic, atraumatic. No pharyngeal erythema. No thyromegaly. CARDIOVASCULAR: S1 and S2 present. No murmurs, rubs, or gallops. PULMONARY: Chest is clear to auscultation, no wheezing or crackles. ABDOMEN: Soft, nontender, nondistended, normoactive bowel sounds. No palpable organomegaly. MUSCULOSKELETAL: No joint swelling or deformity. EXTREMITIES: No cyanosis, clubbing, or pedal edema. NEUROLOGICAL: Gross neurological examination did not reveal any focal deficits. SKIN: No rashes. Assessment and plan -Hypoxia: Secondary to pneumonia bilateral atypical pneumonia is a consideration continue with Rocephin and azithromycin procalcitonin level 0.11 Patient will be given systemic steroids and monitored overnight, -Chest pain pleuritic secondary to pneumonia noncardiac chest pain echocardiac exam within normal limits -Seizure disorder -Drug abuse with the above-mentioned drugs: Patient is on Suboxone which will be continued -Depression -continued nicotine use: Counseling was provided nicotine patch will be ordered DVT prophylaxis: Lovenox The impression and plan of care has been dictated by Hanna Boles, Nurse Practitioner as directed. Dr. Panfilo MD I have performed a history and physical examination and medical decision making of this patient, discussed the same with the dictator, and agree with the dictators assessment and plan as written, documented as a scribe. Based on total visit time, I have performed more than 50% of this visit. Objective - Vital Signs Vital signs: Vital Signs Temp 98.2 F 09/09/23 07:00 Pulse 64 09/09/23 12:13 Resp 16 09/09/23 07:00 BP 111/72 09/09/23 07:00 Pulse Ox 95 09/09/23 08:24 FiO2 Intake & Output 09/08/23 09/09/23 09/09/23 18:59 06:59 18:59 Intake Total 566 601 8551 Balance 184 676 5271 Weight 88.904 kg Intake: Oral 733 136 2381 Other: Voiding Method Toilet # Voids 1 # Bowel Movements 1 - Labs CBC & Chem 7: 09/07/23 19:16 09/07/23 19:16 Labs: Abnormal Lab Results - Last 24 Hours (Table) 09/07/23 09/08/23 Range/Units 19:16 14:05 Procalcitonin 0.11 H (0.02-0.09) ng/mL Urine Opiates Screen Detected H (NotDetected) U Benzodiazepines Scrn Detected H (NotDetected) Urine Cocaine Screen Detected H (NotDetected) Microbiology - Last 24 Hours (Table) 09/07/23 20:15 Blood Culture - Preliminary Blood 09/07/23 20:00 Blood Culture - Preliminary Blood Assessment and Plan Time with Patient: Less than 30
[2023-09-10] MEDS: ALBUTEROL NEBULIZED 2.5 MG/3 ML INHALATION PRN ×2 (08:03→15:06)
[2023-09-10 08:33] VITALS: RESP 16
[2023-09-10] MEDS: ENOXAPARIN 40 MG/0.4 ML SYRINGE SQ SCH (09:50)
[2023-09-10] MEDS: NICOTINE 21MG/24HR PATCH TRANSDERM SCH (09:50)
[2023-09-10] MEDS: methylPREDNISolone SOD SUCCI 40 MG/ML 1 ML VIAL IV SCH (09:50)
[2023-09-10] MEDS: FAMOTIDINE 20 MG TAB PO SCH (09:50)
[2023-09-10] MEDS: ASPIRIN 81 MG PO SCH (09:51)
[2023-09-10] MEDS ORDERED: BUPRENORPHINE-NALOX 8-2 MG TAB 1 EACH TAB.SUBL SL ONE (11:30)
[2023-09-10 17:13] VITALS: BP 120/69; PULSE 75; TEMP 98.2
--- NOTE | 2023-09-12 15:54 | P.DS ---
Providers Date of admission: 09/07/23 20:42 Attending physician: Miguelina Milner Consults: 09/07/23 20:41 Consult Physician Routine Consulting Provider: [facility] Consult Reason/Comments: Chest pain Do you want consulting provider notified?: Yes Primary care physician: Stated None Hospital Course: Final Diagnosis -Hypoxia: Secondary to pneumonia bilateral atypical pneumonia -Chest pain pleuritic secondary to pneumonia noncardiac chest pain echocardiac exam within normal limits -Seizure disorder -Drug abuse with the above-mentioned drugs: Patient is on Suboxone which will be continued -Depression -continued nicotine use Discharge Disposition Patient is stable for return to [facility]. Patient will be continued on oral steroid taper. He was given a dose of suboxone that he usually takes outpatient prior to discharge. Hospital Course This is a 48-year-old male with history of crack: heroine use were is at [facility] was sent in here because of shortness of breath with pulse ox topically case and cough. Patient was using Z-Cole which did not help his symptoms. Patient is found to have bilateral infiltrate consistent with atypical pneumonia or bilateral lower pneumonia and subsequently admitted with the Rocephin and azithromycin patient was also company of chest pain pleuritic in nature. Behind the shoulder blades. D-dimer is negative. Patient is still lethargic. Patient does have leukocytosis, no fever Urine Legionella antigen is pending influenza, RSV, COVID-19 are negative patient had an echocardiogram preoperatively evaluated the patient because of chest pain and normal ejection fraction the patient has not cardiac chest pain. Echocardiogram showing EF 55-60%. His UDS was positive for opiates, cocaine and benzodiazepines. Legionella negative. Hemodynamically stable. He did improve, no further reports of chest pain. His lugs are now clear. He will be discharge back to [facility]. Please see medication reconciliation for a list of current medications. Thank you for allowing us to participate in the care of this patient. The impression and plan of care has been dictated by Hanna Boles, Nurse Practitioner as directed. Dr. Panfilo MD I have performed a history and physical examination and medical decision making of this patient, discussed the same with the dictator, and agree with the dictators assessment and plan as written, documented as a scribe. Based on total visit time, I have performed more than 50% of this visit. Patient Condition at Discharge: Stable Plan - Discharge Summary Discharge Rx Participant: Yes New Discharge Prescriptions: New Aspirin 81 mg PO DAILY #30 tab Nicotine 21Mg/24Hr Patch [Habitrol] 1 patch TRANSDERM DAILY patch Atorvastatin [Lipitor] 20 mg PO HS #30 tab methylPREDNISolone Dose Pack [Medrol Dose Pack] 4 mg PO DIRECTED #21 tab Famotidine [Pepcid] 20 mg PO BID #30 tab Continue Buprenorphine/Naloxone 8Mg/2Mg [Suboxone 8-2Mg Film] 1 film SL BID Albuterol Inhaler [Ventolin Hfa Inhaler] 1 - 2 puff INHALATION RT-Q6H PRN PRN Reason: Shortness Of Breath Mirtazapine 7.5 mg PO HS hydrOXYzine pamoate 50 mg PO Q6H PRN PRN Reason: anxiety/sleep Discharge Medication List Albuterol Inhaler [Ventolin Hfa Inhaler] 1 - 2 puff INHALATION RT-Q6H PRN 09/07/23 [History] Buprenorphine/Naloxone 8Mg/2Mg [Suboxone 8-2Mg Film] 1 film SL BID 09/07/23 [History] Mirtazapine 7.5 mg PO HS 09/07/23 [History] hydrOXYzine pamoate 50 mg PO Q6H PRN 09/07/23 [History] Aspirin 81 mg PO DAILY #30 tab 09/10/23 [Rx] Atorvastatin [Lipitor] 20 mg PO HS #30 tab 09/10/23 [Rx] Famotidine [Pepcid] 20 mg PO BID #30 tab 09/10/23 [Rx] Nicotine 21Mg/24Hr Patch [Habitrol] 1 patch TRANSDERM DAILY patch 09/10/23 [Rx] methylPREDNISolone Dose Pack [Medrol Dose Pack] 4 mg PO DIRECTED #21 tab 09/10/23 [Rx] Follow up Appointment(s)/Referral(s): None,Stated [Primary Care Provider] - 1-2 days Patient Instructions/Handouts: Narcotic Safety (GEN), Community Acquired Pneumonia (DC), Opioid Withdrawal (IP) Activity/Diet/Wound Care/Special Instructions: Patient to call [facility] when discharged - [phone] Discharge Disposition: HOME SELF-CARE
== END 2023-09-10 16:39 | disposition home or self-care (01) | DRG 139 ==
LOC: EC 17:30 → 6NMEDSUR 20:41 → OBSVTOIN 20:42 → 6NMEDSUR 09-08 06:34
PROVIDERS: ADMIT Hospitalist; ATTEND Hospitalist
DX: J18.8 Other pneumonia, unspecified organism (principal); F17.211 Nicotine dependence, cigarettes, in remission; R09.02 Hypoxemia; R06.89 Other abnormalities of breathing; G40.909 Epilepsy, unspecified, not intractable, without status epilepticus; Z11.52 Encounter for screening for COVID-19; Z86.73 Personal history of transient ischemic attack (TIA), and cerebral infarction without residual deficits; F17.210 Nicotine dependence, cigarettes, uncomplicated; F32.A Depression, unspecified; I10 Essential (primary) hypertension; I45.10 Unspecified right bundle-branch block; F14.90 Cocaine use, unspecified, uncomplicated; F11.90 Opioid use, unspecified, uncomplicated
CPT/HCPCS: 36415; 71046; 80053; 80306; 83605; 83735; 83880; 84145; 84484; 85025; 85379; 85610; 85730; 87040; 87449; 87636; 93005; 93306; 94640; 94760; 96365; 96366; 96375; 99285